=== PATIENT | female | born 1950 | race Caucasian/White ===

== ENCOUNTER 2019-11-07 15:00 | Emergency (ER) | payer OTHER, MEDICAID, SELFPAY ==
[~2019-11-07] VITALS: Ht 165.1 cm; Wt 112.9 kg
[2019-11-07 15:15] VITALS: Ht 165.1 cm; Wt 112.9 kg
[2019-11-07 16:39] VITALS: BP 137/77
== END 2019-11-07 16:39 | disposition home or self-care (01) ==
LOC: ED 15:00
DX: U07.1 COVID-19 (principal)
CPT/HCPCS: U0003-CS